=== PATIENT | female | born 1955 ===

== ENCOUNTER 2022-06-28 07:34 | Inpatient (IN) | payer OTHER ==
[~2022-06-28] VITALS: Ht 154.9 cm; Wt 83.9 kg
[2022-06-28] MEDS ORDERED: TRELEGY ELLIPT1 EACH IH (08:15)
[2022-06-28] MEDS ORDERED: PROSAC PO (08:16)
[2022-06-28] MEDS ORDERED: WELLBUTRIN SR200 MG PO (08:16)
[2022-06-28] MEDS ORDERED: COZAAR100 MG PO (08:16)
[2022-06-28] MEDS ORDERED: ZYRTEC10 M3 PO (08:17)
[2022-06-28] MEDS ORDERED: GABAPE PO (08:17)
[2022-06-28] MEDS ORDERED: SINGULAIR10 MG PO (08:18)
[2022-06-28] MEDS ORDERED: QUETIA PO (08:18)
[2022-06-28] MEDS ORDERED: PROTONIX40 M1 PO (08:19)
[2022-06-28] MEDS ORDERED: QUETIA (08:19)
[2022-07-02] MEDS ORDERED: AMOX-CLAV 875-1 EACH PO (07:46)
[2022-07-02] MEDS ORDERED: PERCOCET 5-3251 EACH PO (07:46)
[2022-07-02] MEDS ORDERED: MEDROLPACK PO (07:46)
[2022-07-02] MEDS ORDERED: NEURONTIN800 MG PO (07:47)
[2022-07-02] MEDS ORDERED: COLACE100 MG PO (07:47)
== END 2022-07-04 13:17 | DRG 455 ==
LOC: PED 07-02 04:40 → O/R 07-02 04:40 → PED 07-02 10:24 → SURG 07-02 11:30 → PED 07-04 13:17
PROVIDERS: ADMIT Orthopaedic Surgery Orthopaedic Surgery of the Spine; ATTEND Orthopaedic Surgery Orthopaedic Surgery of the Spine
PROC: 0SG0071 Fusion of Lumbar Vertebral Joint with Autologous Tissue Substitute, Posterior Approach, Posterior Column, Open Approach (ICD-10-PCS; 2022-07-02)
PROC: 0ST20ZZ Resection of Lumbar Vertebral Disc, Open Approach (ICD-10-PCS; 2022-07-02)
PROC: 0QB30ZZ Excision of Left Pelvic Bone, Open Approach (ICD-10-PCS; 2022-07-02)
PROC: 07DR0ZZ Extraction of Iliac Bone Marrow, Open Approach (ICD-10-PCS; 2022-07-02)
PROC: XRGB0R7 Fusion of Lumbar Vertebral Joint using Custom-Made Anatomically Designed Interbody Fusion Device, Open Approach, New Technology Group 7 (ICD-10-PCS; principal; 2022-07-02 11:30)
DX: M43.16 Spondylolisthesis, lumbar region (principal); M48.062 Spinal stenosis, lumbar region with neurogenic claudication; M51.36 Other intervertebral disc degeneration, lumbar region; I10 Essential (primary) hypertension; M19.90 Unspecified osteoarthritis, unspecified site; J45.909 Unspecified asthma, uncomplicated; G47.33 Obstructive sleep apnea (adult) (pediatric); G89.18 Other acute postprocedural pain